=== PATIENT | female | born 1980 | race Hispanic/Latino ===

== ENCOUNTER 2017-11-05 16:32 | Emergency (ER) | payer MEDICAID ==
[2017-11-05 16:43] VITALS: BP 131/75; PULSE 78; RESP 16; TEMP 99.1; O2SAT 99
--- NOTE | 2017-11-05 19:03 | ED PDOC ---
HPI: Female Pain Time Seen by Provider: 11/05/17 17:21 Chief Complaint (Nursing): Female Genitourinary Chief Complaint (Provider): Vaginal Odor History Per: Patient History/Exam Limitations: no limitations Current Symptoms Are (Timing): Still Present Additional Complaint(s): Peace is a 37 y/o female who presents to the ED complaining of an odor in her vaginal area. She has had this in the past, usually related to BV. Patient had an old BV rx and completed it. Her symptoms improved but then came back, prompting ED visit. She has no discharge, abdominal pain, vaginal bleeding, or back pain. PMD: None Provided Past Medical History Reviewed: Historical Data, Nursing Documentation, Vital Signs Vital Signs: Last Vital Signs Temp 99.1 F 11/05/17 16:41 Pulse 78 11/05/17 16:41 Resp 16 11/05/17 16:41 BP 131/75 11/05/17 16:41 Pulse Ox 99 11/05/17 16:41 - Family History Family History: States: Unknown Family Hx - Home Medications Home Medications: Ambulatory Orders Medication Instructions Recorded Clindamycin [Cleocin] 300 mg PO BID #14 cap 11/05/17 - Allergies Allergies/Adverse Reactions: Allergies Allergy/AdvReac Type Severity Reaction Status Date / Time No Known Allergies Allergy Verified 11/05/17 16:41 Review of Systems ROS Statement: Except As Marked, All Systems Reviewed And Found Negative Gastrointestinal: Negative for: Abdominal Pain Genitourinary Female: Positive for: Other (vaginal odor). Negative for: Vaginal Discharge, Vaginal Bleeding Musculoskeletal: Negative for: Back Pain Physical Exam - Reviewed Nursing Documentation Reviewed: Yes Vital Signs Reviewed: Yes - Physical Exam Appears: Positive for: Well, Non-toxic, No Acute Distress Skin: Positive for: Normal Color, Warm, Dry Cardiovascular/Chest: Positive for: Regular Rate, Rhythm. Negative for: Murmur Respiratory: Positive for: Normal Breath Sounds. Negative for: Respiratory Distress Gastrointestinal/Abdominal: Positive for: Soft. Negative for: Tenderness, Guarding, Rebound Pelvic Exam: Positive for: External Exam Normal, Discharge (thin, white), Other (CLOTHES PRESSER was present during the entire exam). Negative for: No Cerv. Motion Tender, No Masses, Active Bleeding, Lesions, Tender W/Cervical Motion, Tender Adnexa, Tender Uterus, Ulcers Back: Positive for: Normal Inspection. Negative for: L CVA Tenderness, R CVA Tenderness Extremity: Positive for: Normal ROM. Negative for: Tenderness, Swelling Neurologic/Psych: Positive for: Alert, Oriented - ECG O2 Sat by Pulse Oximetry: 99 (RA) Pulse Ox Interpretation: Normal Medical Decision Making Medical Decision Making: Time: 17:27 Initial Impression: Bacterial Vaginosis Initial Plan: --Chlamydia/GC cx --Urine --Urine hcg negative. GC culture sent. Will treat for BV with Clindamycin. Patient advised to follow up with PMD or referral provided. Scribe Attestation: Documented by Pablo Hoffman, acting as a scribe for Bianca Meza PA-C. Provider Scribe Attestation: All medical record entries made by the Scribe were at my direction and personally dictated by me. I have reviewed the chart and agree that the record accurately reflects my personal performance of the history, physical exam, medical decision making, and the department course for this patient. I have also personally directed, reviewed, and agree with the discharge instructions and disposition. Disposition - Clinical Impression Clinical Impression: Bacterial vaginosis - Patient ED Disposition Is Patient to be Admitted: No Counseled Patient/Family Regarding: Studies Performed, Diagnosis, Need For Followup, Rx Given - Disposition Referrals: [facility] [Outside] Tory Zazueta MD [Staff Provider] - Disposition: Routine/Home Disposition Time: 19:00 Condition: STABLE Additional Instructions: Thank you for letting us take care of you today. You were treated for bacterial vaginosis. The emergency medical care you received today was directed at your acute symptoms. If you were prescribed any medication, please fill it and take as directed. It may take several days for your symptoms to resolve. Return to the Emergency Department if your symptoms worsen, do not improve, or if you have any other problems. Please contact your doctor in 2 days for re-evaluation and follow up / or call one of the physicians/clinics you have been referred to that are listed on the Patient Visit Information form that is included in your discharge packet. Bring any paperwork you were given at discharge with you along with any medications you are taking to your follow up visit. Our treatment cannot replace ongoing medical care by a primary care provider (PCP) outside of the emergency department. Thank you for allowing the [facility] team to be part of your care today. 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
== END 2017-11-05 19:14 | disposition home or self-care (01) ==
LOC: H.ER 16:32
DX: N76.0 Acute vaginitis (principal); B96.89 Other specified bacterial agents as the cause of diseases classified elsewhere